=== PATIENT | male | born 1990 | race Caucasian/White ===

== ENCOUNTER → 2024-12-29 | Outpatient (CLI) | payer SELFPAY ==
--- NOTE | 2024-12-29 13:55 | RAD_ITS ---
PROCEDURE: HAND MIN 3 VIEWS 12/29/2024 REASON FOR EXAM: Pain following injury. TECHNIQUE: 3 view(s) of the right hand COMPARISON: None FINDINGS: Bones: Comminuted oblique fracture of the midportion of the proximal phalanx of the thumb. Joints: No dislocation. Soft tissues: Soft tissue swelling. Other: RAD/Hand Min 3 Views IMPRESSION: Nondisplaced comminuted fracture through the midportion of the proximal phalanx of the thumb with overlying soft tissue swelling. Reading Location: [place] [id number]
== END | disposition home or self-care (01) ==
PROVIDERS: Referring Provider Physician Assistant; Visit Provider Physician Assistant
DX: M79.641 Pain in right hand (principal)
CPT/HCPCS: 73130